=== PATIENT | female | born 1980 | race Caucasian/White ===

== ENCOUNTER 2020-11-01 17:31 | Emergency (ER) | payer OTHER ==
[~2020-11-01] VITALS: Ht 162.6 cm; Wt 50.0 kg
[2020-11-01 17:34] VITALS: BP 136/88
[2020-11-01] MEDS ORDERED: DIPHENHYDRAMINE 50 MG/ML, 1ML IVPush ONE (18:00)
[2020-11-01] MEDS ORDERED: SODIUM CHLORIDE FLUSH 10ML SYR IVF ONE (18:00)
[2020-11-01] MEDS ORDERED: PROCHLORPERAZINE 5 MG/ML, 2ML IVPush ONE (18:00)
[2020-11-01] MEDS ORDERED: SODIUM CHLORIDE 0.9% 1,000ML IVBOLUS ONE (18:00)
[2020-11-01] MEDS ORDERED: [UNRECOGNIZED DRUG - REMARK] MC SCH (18:00)
--- NOTE | 2020-11-01 18:16 | NUR ---
mri special procedures technologist: Pt ambulatory to room from lobby at this time.
[2020-11-01] MEDS ORDERED: KETOROLAC 30 MG/1 ML IVPush ONE (18:30)
--- NOTE | 2020-11-01 18:30 | NUR ---
C/O MIGRAINE X 4 DAYS. + N/V, PHOTOPHOBIA. SEEN AT TODAY; RX FOR IMMITREX PROVIDED. TOOK IBUPROFEN, ALEVE ORDER REVIEWED-TORADOL ALLERGY CONFIRMED WITH PATIENT. COMPRESS ENGINEER ASKED WHAT WORKS FOR HER HEADACHE "THEY USUALLY GIVE ME WHAT I DON'T WANT WHICH IS DILAUDID." ERP MADE AWARE OF PATIENT'S SEEKING BEHAVIOR
[2020-11-01] MEDS ORDERED: PROCHLORPERAZINE 5 MG/ML, 2ML IM ONE (19:00)
[2020-11-01] MEDS ORDERED: ACETAMINOPHEN 500 MG TABLET PO ONE (19:00)
[2020-11-01] MEDS ORDERED: DIPHENHYDRAMINE 25 MG CAPSULE PO ONE (19:00)
[2020-11-01] MEDS ORDERED: DIPHENHYDRAMINE 25 MG CAPSULE ONE (19:05)
[2020-11-01] MEDS ORDERED: ACETAMINOPHEN 500 MG TABLET ONE (19:05)
[2020-11-01] MEDS ORDERED: PROCHLORPERAZINE 5 MG/ML, 2ML ONE (19:06)
--- NOTE | 2020-11-01 19:24 | NUR ---
MEDICATED PER EMAR
--- NOTE | 2020-11-01 19:55 | NUR ---
WITH REASSESSMENT PATIENT NOW VOMITING. ERP MADE AWARE
--- NOTE | 2020-11-01 19:56 | NUR ---
REPORT FROM SAMARIA ASSUMED CARE OF PT AT THIS TIME
--- NOTE | 2020-11-01 19:57 | NUR ---
REPORT TO ROBBY NOE
== END 2020-11-01 20:08 | disposition left against medical advice (07) ==
LOC: ED 18:35
DX: R51.9 Headache, unspecified (principal); J45.909 Unspecified asthma, uncomplicated; Z90.49 Acquired absence of other specified parts of digestive tract; Z88.0 Allergy status to penicillin; Z88.2 Allergy status to sulfonamides
CPT/HCPCS: 96372; 99283; J0780; Q0163